=== PATIENT | female | born 1980 | race Caucasian/White ===

== ENCOUNTER → 2019-09-28 13:03 | Outpatient (BNVA) | payer OTHER, SELFPAY | PROVIDERS: PCP Nurse Practitioner; Visit Provider Nurse Practitioner Family | DX: R23.2 Flushing (principal); I10 Essential (primary) hypertension; M94.0 Chondrocostal junction syndrome [Tietze]; F41.0 Panic disorder [episodic paroxysmal anxiety]; W57.XXXA Bitten or stung by nonvenomous insect and other nonvenomous arthropods, initial encounter | CPT/HCPCS: 80053; 80061; 82607; 83001; 83735; 84146; 84443; 85025 ==

== ENCOUNTER → 2020-04-17 10:58 | Outpatient (BNVA) | payer SELFPAY | PROVIDERS: PCP Nurse Practitioner; Visit Provider Nurse Practitioner Family | DX: R07.81 Pleurodynia (principal) | CPT/HCPCS: 71046 ==

== ENCOUNTER → 2020-04-23 08:49 | Outpatient (BNVA) | payer SELFPAY | PROVIDERS: PCP Nurse Practitioner; Visit Provider Nurse Practitioner | DX: I10 Essential (primary) hypertension (principal) | CPT/HCPCS: 80053; 80061; 84443 ==

== ENCOUNTER → 2020-04-26 08:07 | Outpatient (BNVA) | payer SELFPAY | PROVIDERS: PCP Nurse Practitioner; Visit Provider Nurse Practitioner | DX: R73.9 Hyperglycemia, unspecified (principal); I10 Essential (primary) hypertension | CPT/HCPCS: 83036 ==

== ENCOUNTER → 2020-05-03 10:46 | Outpatient (BNVA) | payer SELFPAY | PROVIDERS: PCP Nurse Practitioner; Visit Provider Nurse Practitioner Family | DX: Z20.828 Contact with and (suspected) exposure to other viral communicable diseases (principal); J06.9 Acute upper respiratory infection, unspecified | CPT/HCPCS: 87635 ==

== ENCOUNTER → 2020-06-19 08:54 | Outpatient (BNVA) | payer SELFPAY | PROVIDERS: PCP Nurse Practitioner; Visit Provider Nurse Practitioner Family | DX: M54.9 Dorsalgia, unspecified (principal); R10.9 Unspecified abdominal pain; R10.30 Lower abdominal pain, unspecified; K58.1 Irritable bowel syndrome with constipation | CPT/HCPCS: 80053; 81000; 85025 ==

== ENCOUNTER → 2021-04-23 14:06 | Outpatient (BNVA) | payer BC, SELFPAY | PROVIDERS: PCP Nurse Practitioner; Visit Provider Nurse Practitioner | DX: R39.9 Unspecified symptoms and signs involving the genitourinary system (principal); K58.1 Irritable bowel syndrome with constipation | CPT/HCPCS: 81000 ==

== ENCOUNTER 2021-04-24 10:10 | Emergency (ER) | payer BC, MEDICAID, SELFPAY ==
[2021-04-24 10:46] VITALS: BP 157/97; PULSE 85; RESP 18; TEMP 36.9; O2SAT 99; BMI 40.6
[2021-04-24 12:36] LABS: Add Urine Microscopic? NO; Charge for UA Resulting for Rev
[2021-04-24 12:38] LABS: Bilirubin Urine Neg (Negative); Blood Urine Neg (Negative); Glucose Urine UA Norm (Normal); HCG Qualitative Urine. Negative (Negative); Ketones Urine Negative (Negative); Leukocyte Esterase Urine Negative (Negative); Nitrate Urine Negative (Negative); Protein Urine Neg (Negative); Urine Appearance Clear (CLEAR); Urine Color Straw (Yellow); Urobilinogen Urine Norm (Negative); pH Urine 7 (5-7)
[2021-04-24 12:57] VITALS: BP 147/96; PULSE 83; RESP 18; O2SAT 100
--- NOTE | 2021-04-24 13:09 | ED_ITS ---
HPI - Female Genitourinary General: Chief complaint: Urogenital-Female Stated complaint: right abd pain lower back pain Time Seen by Provider: 04/24/21 13:06 History of Present Illness: Associated symptoms: Reports abdominal pain Review of Systems General: Reports: 10 or more systems reviewed and unremarkable except in HPI and below GI: Reports: abdominal pain [facility] ED PFSH: Medical History Hyperlipidemia Hypertension Irritable bowel syndrome with constipation Nicotine dependence, cigarettes, uncomplicated as of 11/29/20, has not smoked in five weeks. Panic disorder without agoraphobia Surgical History History of delivery Family History Mother Diabetes Father CAD (coronary artery disease) Social History Second hand smoke exposure: No Alcohol intake: never Lives independently: Yes Household members: spouse and children Housing: House Marital status: Current gender identity: Female Physical Exam Const: COMMON NORMALS: no acute distress, patient oriented x3, no limitations and alert GENERAL APPEARANCE: cooperative and comfortable ORIENTATION/CONSCIOUSNESS: Yes awake, Yes oriented to person, Yes oriented to place and Yes oriented to time HENMT: COMMON NORMALS: normocephalic, atraumatic, external ears normal, EAC's normal, TM's normal bilaterally and Normal external nose present HEAD & SCALP: normal to inspection, normocephalic and atraumatic FACE & SINUS: normal facial exam, sinuses nontender and face symmetric NOSE: Normal external nose present, Normal nares present and No nasal discharge present EXTERNAL EAR: Yes external ears normal EXTERNAL AUDITORY CANAL: EAC's normal TYMPANIC MEMBRANE: TM's normal bilaterally MOUTH: Normal oral and palatal mucosa present, lip normal and tongue normal THROAT: posterior oropharynx normal, tonsils normal and uvula midline Eye: COMMON NORMALS: Equal, round and reactive pupils present, EOMs intact bilaterally and conjunctivae normal GENERAL EYE: appearance normal, both eyes and all related structures and normal light reflex EYELID: eyelids normal CONJUNCTIVA: Yes conjunctivae normal PUPIL: Yes Equal, round and reactive pupils present EOM: Yes EOM abnormal DIRECT OPHTHALMOSCOPY: Yes normal light reflex Neck/C-Spine: COMMON NORMALS: full ROM, no lymphadenopathy, supple, no meningeal signs, no JVD and Thyroid normal GENERAL: Yes normal visual inspection THYROID: Thyroid normal CERVICAL SPINE: Yes cervical ROM normal and Yes normal cervical lordosis Lymph: LYMPHATIC: no lymphadenopathy noted Chest: COMMONS NORMALS: normal inspection of the chest and normal palpation of entire chest wall Resp: COMMON NORMALS: normal respiratory effort, No retractions and clear to auscultation bilaterally AUSCULTATION: clear to auscultation bilaterally Cardio: COMMON NORMALS: no JVD, regular rate, regular rhythm, S1 normal heart sound present, S2 normal heart sound present, No gallops present (Cardio), No clicks present (Cardio), No murmurs present (Cardio), No rub (Cardio) and Peripheral pulses 2+ throughout RATE: regular rate RHYTHM: regular rhythm HEART SOUNDS: S1 normal heart sound present and S2 normal heart sound present PERIPHERAL PULSES: Peripheral pulses 2+ throughout GI: COMMON NORMALS: Normal to inspection, nondistended, normoactive bowel sounds present, Soft to palpation and no masses PALPATION: Yes Soft to palpation and Yes Tenderness to palpation present (GI) Details: RLQ : COMMON NORMALS: Yes no CVA tenderness and Yes normal external appearance BLADDER/KIDNEY EXAM: Yes no CVA tenderness Back/Pelvis: COMMON NORMALS: no CVA tenderness, thoracic and lumbar spine normal to inspection, no thoracic nor lumbar tenderness and thoraco-lumbar ROM normal Extremity: COMMON NORMALS: normal to inspection, full ROM, capillary refill normal, no joint enlargement, no clubbing, cyanosis or edema, no calf tenderness and no pedal edema GENERAL: Yes normal exam except as noted Neuro: COMMON NORMALS: patient oriented x3, moves all extremities, no focal motor deficits, no sensory deficits noted and gait normal SENSORIUM/ORIENTATION: Yes alert, Yes oriented to person, Yes oriented to place and Yes oriented to time MENINGEAL SIGNS: Yes no meningeal signs Psych: COMMON NORMALS: mental status grossly normal, Normal thought process present, cooperative, normal affect, speech normal and activity/motor behavior normal SPEECH: Yes normal speech THOUGHT PROCESS: Normal thought process present Skin: COMMON NORMALS: no rashes or lesions noted, no wounds and turgor normal GENERAL SKIN EXAM: no rashes or lesions noted and turgor normal Course ED course: Pt presents with complaints of RLQ pain for several weeks. She had taken antibx for COVID recently and feels it was worse after that. Notes some urinary changes and fearful that her appendix may be an issue. Pt cannot tolerate IV contrast. Labs ordered. Reevaluation(s): Reevaluation #1: Pt labs do not reflect any acute infection- we discussed possibility of celiac's disease and need for further work up as well as possible need for colonoscopy and EGD. IBS symptoms increasing so small intestinal bacterial overgrowth after antibx is another consideration. Good probiotics, no gluten or dairy, cut out refined sugars, and consider fasting to help with dysbiosis. Will DC. Time: 15:26 Vital Signs: Vital signs: Vital Signs Temperature 98.4 F 04/24/21 10:46 Pulse Rate 83 04/24/21 12:57 Respiratory Rate 18 04/24/21 12:57 Blood Pressure 147/96 04/24/21 12:57 Pulse Oximetry 100 04/24/21 12:57 MDM - Female Lab Data: Labs: Lab Results 04/24/21 04/24/21 04/24/21 12:14 12:14 14:34 WBC 8.4 10^3/uL 10^3/ uL (4.0-10.0) RBC 5.40 10^6/uL H 10 ^6/uL (4.1-5.3) Hgb 14.3 g/dL g/dL (11.5-15.3) Hct 44.8 % % (37.0-47.0) MCV 83.0 fl fl (81-99) MCH 26.5 pg L pg (28.0-34.0) MCHC 31.9 g/dL g/dL (30.0-36.0) RDW 14.0 % % (12.1-15.1) Plt Count 357 10^3/cmm 10^3 /cmm (130-400) MPV 10.5 fL H fL (7.4-10.4) Neut % (Auto) 66.1 % % Lymph % (Auto) 23.4 % % [place] % (Auto) 8.4 % % Eos % (Auto) 1.0 % % Baso % (Auto) 0.7 % % Neut # (Auto) 5.54 10^3/uL 10^3 /uL (1.8-7.7) Lymph # (Auto) 2.0 10^3/uL 10^3/ uL (0.8-4.8) [place] # (Auto) 0.7 10^3/uL 10^3/ uL (0.2-0.9) Eos # (Auto) 0.1 10^3/uL 10^3/ uL (0.0-0.8) Baso # (Auto) 0.1 10^3/uL 10^3/ uL (0.0-0.1) Nucleated RBC % (a uto) 0 % % Nucleated RBCs # 0.0 /100WBC /100W BC Sodium Potassium Chloride Carbon Dioxide Anion Gap BUN Creatinine GFR Calculation Glucose Calculated Osmolal ity Calcium Total Bilirubin AST ALT Alkaline Phosphata se Total Protein Albumin Globulin Amylase Lipase 25-OH Vitamin D To chirag HCG, Qual Negative (Negative) Urine Color Straw (Yellow) Urine Appearance Clear (CLEAR) Urine pH 7 (5-7) Ur Specific Gravit y 1.010 (1.005-1.030) Urine Protein Neg (Negative) Urine Glucose (UA) Norm (Normal) Urine Ketones Negative (Negative) Urine Blood Neg (Negative) Urine Nitrate Negative (Negative) Urine Bilirubin Neg (Negative) Urine Urobilinogen Norm mg/dL mg/dL (Negative) Ur Leukocyte Adriana ase Negative (Negative) 04/24/21 14:34 WBC RBC Hgb Hct MCV MCH MCHC RDW Plt Count MPV Neut % (Auto) Lymph % (Auto) [place] % (Auto) Eos % (Auto) Baso % (Auto) Neut # (Auto) Lymph # (Auto) [place] # (Auto) Eos # (Auto) Baso # (Auto) Nucleated RBC % (a uto) Nucleated RBCs # Sodium 137 mmol/L mmol/L (136-145) Potassium 3.8 mmol/L mmol/L (3.5-5.1) Chloride 103 mmol/L mmol/L (98-107) Carbon Dioxide 27 mmol/L mmol/L (22-29) Anion Gap 10.8 (5-19) BUN 5 mg/dL L mg/dL (6-20) Creatinine 0.6 mg/dL mg/dL (0.5-0.9) GFR Calculation 110.2 mL/min mL/m in (90-130) Glucose 105 mg/dL mg/dL (65-115) Calculated Osmolal ity 282 mOsm/kg L mOs m/kg (285-295) Calcium 8.6 mg/dL mg/dL (8.5-10.5) Total Bilirubin 0.4 mg/dL mg/dL (0.15-1.2) AST 13 U/L U/L (0-32) ALT 13 U/L U/L (0-33) Alkaline Phosphata se 119 IU/L H IU/L (35-105) Total Protein 7.1 g/dL g/dL (6.6-8.7) Albumin 3.6 g/dL g/dL (3.5-5.2) Globulin 3.5 g/dL g/dL (1.3-4.6) Amylase 34 U/L U/L (28-100) Lipase 19 U/L U/L (13-60) 25-OH Vitamin D To chirag 52 ng/mL ng/mL (30-100) HCG, Qual Urine Color Urine Appearance Urine pH Ur Specific Gravit y Urine Protein Urine Glucose (UA) Urine Ketones Urine Blood Urine Nitrate Urine Bilirubin Urine Urobilinogen Ur Leukocyte Adriana ase Discharge Plan Discharge Condition: Stable Prescriptions: No Action escitalopram oxalate [Lexapro] 20 mg tablet 20 mg PO QAM Qty: 30 RF: 6 levothyroxine 50 mcg tablet 50 mcg PO DAILY Qty: 90 RF: 1 dicyclomine 20 mg tablet 20 mg PO BID PRN (Reason: ibs symptoms) Qty: 14 RF: 0 ibuprofen 200 mg capsule 200 mg PO Q6H PRN (Reason: pain) 14 Days Qty: 56 RF: 0 silver sulfadiazine [Silvadene] 1 % cream 1 applic topical BID Qty: 50 RF: 0 alprazolam 0.5 mg tablet 0.5 mg PO TID Qty: 120 RF: 3 metoprolol succinate 100 mg tablet extended release 24 hr 100 mg PO DAILY Qty: 30 RF: 0 Discharge Orders: Discharge ED (Routine); Ordered 04/24/21 Ordered By: Kaity Ureña Referrals: Krys Jaimes, [employer] POWERPLANT TECHNICIAN-C [Primary Care Provider] - Discharge Diet: As Directed Discharge Activity: Increase activity as tolerated Activity Restrictions/Additional Instructions: PROBIOTICS MAGNESIUM VIT D B COMPLEX NO GLUTEN NO DAIRY Coding Level of Care Code ED Cleaner Greaser for Chg Fwdamon
[2021-04-24 14:42] LABS: Basophils # 0.1 10^3/uL (0.0-0.1); Basophils % 0.7 %; Eosinophils # 0.1 10^3/uL (0.0-0.8); Hematocrit 44.8 % (37.0-47.0); Hemoglobin 14.3 g/dL (11.5-15.3); Lymphocytes % 23.4 %; Mean Corpuscular HGB Conc 31.9 g/dL (30.0-36.0); Mean Corpuscular Hemoglobin 26.5 pg (28.0-34.0); Mean Platelet Volume 10.5 fL (7.4-10.4); Monocytes # 0.7 10^3/uL (0.2-0.9); Monocytes % 8.4 %; Neutrophils # 5.54 10^3/uL (1.8-7.7); Neutrophils % 66.1 %; Nucleated Red Blood Cells % 0 %; Platelet Count 357 10^3/cmm (130-400); White Blood Count 8.4 10^3/uL (4.0-10.0)
[2021-04-24 15:01] LABS: Alanine Aminotransferase 13 U/L (0-33); Albumin Level 3.6 g/dL (3.5-5.2); Alkaline Phosphatase 119 IU/L (35-105); Amylase 34 U/L (28-100); Anion Gap 10.8 (5-19); Aspartate Amino Transferase 13 U/L (0-32); Blood Urea Nitrogen 5 mg/dL (6-20); Calcium 8.6 mg/dL (8.5-10.5); Carbon Dioxide 27 mmol/L (22-29); Chloride 103 mmol/L (98-107); Globulin 3.5 g/dL (1.3-4.6); Glomerular Filtration Rate 110.2 mL/min (90-130); Glucose 105 mg/dL (65-115); Lipase 19 U/L (13-60); Osmolality Calculated 282 mOsm/kg (285-295); Potassium 3.8 mmol/L (3.5-5.1); Sodium 137 mmol/L (136-145); Total Bilirubin 0.4 mg/dL (0.15-1.2); Total Protein 7.1 g/dL (6.6-8.7)
[2021-04-24 15:17] LABS: 25 Hydroxy Vitamin D 52 ng/mL (30-100)
== END 2021-04-24 15:48 ==
PROVIDERS: Emergency Medicine; Emergency Provider Nurse Practitioner Family; PCP Nurse Practitioner
DX: R10.9 Unspecified abdominal pain (principal); M54.50 Low back pain, unspecified; E78.5 Hyperlipidemia, unspecified; I10 Essential (primary) hypertension
CPT/HCPCS: 36415; 80053; 81003; 81025; 82150; 82306; 83690; 85025; 99282

== ENCOUNTER → 2021-05-21 18:27 | Outpatient (BNVA) | payer BC, SELFPAY | PROVIDERS: PCP Nurse Practitioner; Visit Provider Nurse Practitioner | DX: S92.911A Unspecified fracture of right toe(s), initial encounter for closed fracture (principal); X58.XXXA Exposure to other specified factors, initial encounter | CPT/HCPCS: 73630 ==

== ENCOUNTER → 2022-01-01 09:05 | Outpatient (BNVA) | payer BC, SELFPAY | PROVIDERS: PCP Nurse Practitioner; Visit Provider Nurse Practitioner Family | DX: Z11.59 Encounter for screening for other viral diseases (principal); Z20.2 Contact with and (suspected) exposure to infections with a predominantly sexual mode of transmission | CPT/HCPCS: 86695; 86696; 86803; 87340; 87491; 87591; 87661; 87806 ==

== ENCOUNTER 2022-02-19 09:05 | Outpatient (CLI) | payer BC, MEDICAID, SELFPAY ==
[2022-02-19 10:23] LABS: Thyroid Stimulating Hormone 2.46 uIU/mL (0.27-4.20)
== END 2022-02-19 09:06 | disposition home or self-care (01) ==
LOC: LAB 09:13
PROVIDERS: PCP Nurse Practitioner; Visit Provider Nurse Practitioner
DX: I10 Essential (primary) hypertension (principal)
CPT/HCPCS: 36415; 84443

== ENCOUNTER → 2022-03-09 13:04 | Outpatient (BNVA) | payer BC, MEDICAID, SELFPAY | PROVIDERS: PCP Nurse Practitioner; Visit Provider Nurse Practitioner | DX: I10 Essential (primary) hypertension (principal) | CPT/HCPCS: 80053; 80061 ==

== ENCOUNTER 2022-04-08 11:20 | Outpatient (CLI) | payer BC, MEDICAID, SELFPAY ==
[2022-04-08 12:26] LABS: Alanine Aminotransferase 14 U/L (0-33); Albumin Level 3.8 g/dL (3.5-5.2); Alkaline Phosphatase 121 U/L (35-105); Anion Gap 14.1 (5-19); Aspartate Amino Transferase 15 U/L (0-32); Blood Urea Nitrogen 6 mg/dL (6-20); Calcium 9.1 mg/dL (8.5-10.5); Carbon Dioxide 24 mmol/L (22-29); Chloride 102 mmol/L (98-107); Chol HDL Ratio 5.57 mg/dL (0.0-4.40); Cholesterol 156 mg/dL (0-200); Globulin 3.3 g/dL (1.3-4.6); Glomerular Filtration Rate 91.8 mL/min (90-130); Glucose 102 mg/dL (65-115); HDL Cholesterol 28 mg/dL (60-100); LDL Cholesterol Calculated 99 mg/dL (50-129); Osmolality Calculated 280 mOsm/kg (285-295); Potassium 4.1 mmol/L (3.5-5.1); Sodium 136 mmol/L (136-145); Thyroid Stimulating Hormone 2.42 uIU/mL (0.27-4.20); Total Bilirubin 0.3 mg/dL (0.15-1.2); Total Protein 7.1 g/dL (6.6-8.7); Triglycerides 144 mg/dL (0-150); VLDL Cholestrol Calculation 29 mg/dL (0-30)
== END 2022-04-08 11:21 | disposition home or self-care (01) ==
PROVIDERS: PCP Nurse Practitioner; Visit Provider Nurse Practitioner
DX: E78.5 Hyperlipidemia, unspecified (principal); E03.8 Other specified hypothyroidism
CPT/HCPCS: 80053; 80061; 84443

== ENCOUNTER → 2022-10-15 09:09 | Outpatient (BNVA) | payer BC, MEDICAID, SELFPAY | PROVIDERS: PCP Nurse Practitioner; Visit Provider Nurse Practitioner | DX: E78.5 Hyperlipidemia, unspecified (principal); E03.8 Other specified hypothyroidism; I10 Essential (primary) hypertension | CPT/HCPCS: 80053; 80061; 84443 ==

== ENCOUNTER → 2023-01-11 12:28 | Outpatient (BNVA) | payer BC, MEDICAID, SELFPAY | PROVIDERS: PCP Nurse Practitioner; Visit Provider Nurse Practitioner | DX: R39.9 Unspecified symptoms and signs involving the genitourinary system (principal); K58.1 Irritable bowel syndrome with constipation | CPT/HCPCS: 81000; 87086 ==

== ENCOUNTER 2023-03-09 17:47 | Emergency (ER) | payer BC, MEDICAID, SELFPAY ==
[2023-03-09 18:11] VITALS: BP 173/98; PULSE 82; RESP 16; TEMP 37.3; O2SAT 99; BMI 43.2
--- NOTE | 2023-03-09 18:17 | W.ED.ABDPA2 ---
HPI - Abdominal Pain General: Chief Complaint: Abdominal Pain Stated Complaint: rib pain Time Seen by Provider: 03/09/23 18:01 History of Present Illness: 42-year-old female comes in today with right upper quadrant abdominal discomfort for 1 week. Patient reports the pain is pressure. Patient appears nontoxic. Patient appears in mild to no pain. Patient has a history of chronic back pain, IBS, obesity, panic disorder, hypertension. Review of Systems General: Reports: 10 or more systems reviewed and unremarkable except in HPI and below GI: Reports: abdominal pain (ruq) PFSH ED PFSH: Medical History External hemorrhoid Hyperlipidemia Hypertension Irritable bowel syndrome with constipation Panic disorder without agoraphobia Surgical History History of delivery Family History Mother Diabetes Father CAD (coronary artery disease) Social History Second hand smoke exposure: No Alcohol intake: unknown Substance/Drug Use: unknown Adopted: No Caregiver/support person: No Lives independently: Yes Household members: children Housing: House Marital status: Single Number of children: 3 service: No Current occupational status: employed Do you think of yourself as: Straight/Heterosexual Current gender identity: Female Physical Exam Const: COMMON NORMALS: alert HENMT: COMMON NORMALS: normocephalic and Normal external nose present HEAD & SCALP: normocephalic NOSE: Normal external nose present Neck/C-Spine: COMMON NORMALS: full ROM Resp: COMMON NORMALS: normal respiratory effort and clear to auscultation bilaterally AUSCULTATION: clear to auscultation bilaterally Cardio: COMMON NORMALS: regular rate and regular rhythm RATE: regular rate RHYTHM: regular rhythm GI: COMMON NORMALS: Soft to palpation AUSCULTATION: Yes Hyperactive bowel sounds present PALPATION: Yes Soft to palpation and Yes Tenderness to palpation present (GI) Details: RUQ : COMMON NORMALS: Yes no CVA tenderness BLADDER/KIDNEY EXAM: Yes no CVA tenderness Back/Pelvis: COMMON NORMALS: no CVA tenderness and thoracic and lumbar spine normal to inspection Extremity: COMMON NORMALS: normal to inspection Neuro: SENSORIUM/ORIENTATION: Yes alert Skin: COMMON NORMALS: turgor normal GENERAL SKIN EXAM: turgor normal Course Vital Signs: Vital signs: Vital Signs Temperature 99.1 F 03/09/23 18:11 Pulse Rate 82 03/09/23 18:11 Respiratory Rate 16 03/09/23 18:11 Blood Pressure 173/98 03/09/23 18:11 Pulse Oximetry 99 03/09/23 18:11 Oxygen Delivery Me thod Room Air 03/09/23 18:11 MDM - Abdominal Pain Medical Decision Making 42-year-old female comes in today with complaints of right upper quadrant abdominal pressure and tenderness. Patient appears nontoxic. Patient appears in mild pain. Vital signs are normal. On exam abdomen soft with some hyperactive bowel sounds. Patient did endorse that she had taken some lactulose prior to coming to the ER believing she was constipated. Tenderness was noted in the right upper quadrant of the abdomen. No CVA tenderness. No pain along the spinal column. Differential diagnosis includes but not limited to constipation, gallbladder disease, pancreatitis, gastroenteritis, bowel obstruction. CBC showed a white blood cell count 12,000, CMP was unremarkable. Exam noted some right upper quadrant tenderness with deep palpation. Ultrasound was performed and noted gallstones without definitive sign of infection or obstruction. Reviewed exam with patient recommended treatment follow-up with surgeon for gallbladder removal. Patient was stable and in no severe pain, and discharged to home. Lab Data 03/09/23 18:57 03/09/23 18:57 Labs/Radiology: Radiology Impressions KUB X-Ray 03/09/23 18:25 IMPRESSION: No acute findings. Gallbladder Ultrasound 03/09/23 19:33 IMPRESSION: 1. Fatty liver 2. Cholelithiasis with thickening of the gallbladder wall. Cholecystitis not excluded. 3. Right kidney cyst Laboratory Results WBC 12.31 10^3/uL (3.29-11.43) H 03/09/23 18:57 RBC 5.70 10^6/uL (3.85-5.65) H 03/09/23 18:57 Hgb 15.20 g/dL (11.27-16.99) 03/09/23 18:57 Hct 46.9 % (36-47) 03/09/23 18:57 MCV 82.3 fl (85-98) L 03/09/23 18:57 MCH 26.7 pg (27-33) L 03/09/23 18:57 MCHC 32.4 g/dL (30-55) 03/09/23 18:57 RDW 14.5 % (12.1-15.1) 03/09/23 18:57 Plt Count 433 10^3/cmm (157-399) H 03/09/23 18:57 MPV 10.1 fL (7.4-10.4) 03/09/23 18:57 Neut % (Auto) 68.7 % 03/09/23 18:57 Lymph % (Auto) 23.8 % 03/09/23 18:57 [place] % (Auto) 5.8 % 03/09/23 18:57 Eos % (Auto) 0.9 % 03/09/23 18:57 Baso % (Auto) 0.5 % 03/09/23 18:57 Neut # (Auto) 8.46 10^3/uL (1.8-7.7) H 03/09/23 18:57 Lymph # (Auto) 2.9 10^3/uL (0.8-4.8) 03/09/23 18:57 [place] # (Auto) 0.7 10^3/uL (0.2-0.9) 03/09/23 18:57 Eos # (Auto) 0.1 10^3/uL (0.0-0.8) 03/09/23 18:57 Baso # (Auto) 0.1 10^3/uL (0.0-0.1) 03/09/23 18:57 Nucleated RBC % (auto) 0 % 03/09/23 18:57 Nucleated RBCs # 0.0 /100WBC 03/09/23 18:57 Sodium 137 mmol/L (136-145) 03/09/23 18:57 Potassium 3.7 mmol/L (3.5-5.1) 03/09/23 18:57 Chloride 101 mmol/L (98-107) 03/09/23 18:57 Carbon Dioxide 26 mmol/L (22-29) 03/09/23 18:57 Anion Gap 13.7 (5-19) 03/09/23 18:57 BUN 5 mg/dL (6-20) L 03/09/23 18:57 Creatinine 0.7 mg/dL (0.5-0.9) 03/09/23 18:57 GFR Calculation 91.3 mL/min (90-130) 03/09/23 18:57 Glucose 98 mg/dL (65-115) 03/09/23 18:57 Calculated Osmolality 281 mOsm/kg (285-295) L 03/09/23 18:57 Calcium 9.8 mg/dL (8.5-10.5) 03/09/23 18:57 Total Bilirubin 0.4 mg/dL (0.15-1.2) 03/09/23 18:57 AST 12 U/L (0-32) 03/09/23 18:57 ALT 13 U/L (0-33) 03/09/23 18:57 Alkaline Phosphatase 131 U/L (35-105) H 03/09/23 18:57 Total Protein 7.9 g/dL (6.6-8.7) 03/09/23 18:57 Albumin 4.1 g/dL (3.5-5.2) 03/09/23 18:57 Globulin 3.8 g/dL (1.3-4.6) 03/09/23 18:57 Lipase 25 U/L (13-60) 03/09/23 18:57 HCG, Qual Negative (Negative) 03/09/23 19:25 Urine Color Yellow (Yellow) 03/09/23 19:25 Urine Appearance Clear (CLEAR) 03/09/23 19:25 Urine pH 7 (5-7) 03/09/23 19:25 Ur Specific [place] 1.010 (1.005-1.030) 03/09/23 19:25 Urine Protein Neg (Negative) 03/09/23 19:25 Urine Glucose (UA) Norm (Normal) 03/09/23 19:25 Urine Ketones Negative (Negative) 03/09/23 19:25 Urine Blood Neg (Negative) 03/09/23 19:25 Urine Nitrate Negative (Negative) 03/09/23 19:25 Urine Bilirubin Neg (Negative) 03/09/23 19:25 Urine Urobilinogen Norm mg/dL (Negative) 03/09/23 19:25 Ur Leukocyte Esterase Negative (Negative) 03/09/23 19:25 All radiology interpretation(s) finalized by discharge Discharge Plan Discharge Patient Disposition: Home Clinical Impression: Cholelithiasis Qualifiers: Cholelithiasis location: gallbladder Cholecystitis presence: without cholecystitis Biliary obstruction: without biliary obstruction Qualified Code(s): K80.20 - Calculus of gallbladder without cholecystitis without obstruction Condition: Stable Prescriptions: No Action fenofibrate nanocrystallized [Tricor] 145 mg tablet 145 mg PO DAILY Qty: 30 5RF lactulose 10 gram/15 mL solution 20 g PO BID PRN (Reason: constipation) Qty: 500 5RF hydrocortisone [Anusol-HC] 2.5 % cream with perineal applicator 1 applic [place] TID PRN (Reason: hemorrhoids) Qty: 30 1RF triamcinolone acetonide 0.1 % ointment 1 applic topical BID Qty: 15 0RF escitalopram oxalate [Lexapro] 20 mg tablet 20 mg PO .morning Qty: 90 2RF Rx Instructions: Take one tablet every morning bupropion HCl [Wellbutrin SR] 150 mg tablet sustained-release 12 hr 150 mg PO QAM Qty: 30 4RF metoprolol succinate 100 mg tablet extended release 24 hr 100 mg PO .with dinner Qty: 30 5RF Rx Instructions: no meds sent has at home alprazolam 0.5 mg tablet 0.5 mg PO TID PRN (Reason: anxiety) Qty: 90 4RF Rx Instructions: May take one tablet three times per day as needed for anxiety Discharge Orders: Discharge ED (Routine); Ordered 03/09/23 Ordered By: Gregory White Referrals: Krys Jaimes, [employer]UKE[employer] ROUTEMAN-C [Primary Care Provider] - Discharge Diet: Advance as tolerated Patient Instructions: Gallstones (ED) Activity Restrictions/Additional Instructions: Home and rest. Avoid high-fat meals. Drink plenty of water and fluids. Follow-up with primary care as needed. Case management will contact you regarding follow-up appointment with surgeon. Return to ER for worsening symptoms such as inability to hold fluids down, high fever greater than 100.4, worsening pain and discomfort. Coding Level of Care Code ED Field Crop Technical Officer for Sarai Sage
--- NOTE | 2023-03-09 18:25 | XRR_ITS ---
PROCEDURE INFORMATION: Exam: XR Abdomen Exam date and time: 03/09/2023 6:31 PM Age: 42 years old Clinical indication: Abdominal pain; Acute; Prior surgery; Surgery date: 6+ months; Surgery type: Tubal ; Additional info: Constipation TECHNIQUE: Imaging protocol: Radiologic exam of the abdomen. Views: Frontal supine view of the abdomen. 1 View. COMPARISON: CR XR chest 2V* [id number] 04/17/2020 10:58 AM FINDINGS: Gastrointestinal tract: Normal. No bowel dilation. Bones/joints: Unremarkable. XR/XR KUB [id number] IMPRESSION: No acute findings.
[2023-03-09 19:19] LABS: Alanine Aminotransferase 13 U/L (0-33); Albumin Level 4.1 g/dL (3.5-5.2); Alkaline Phosphatase 131 U/L (35-105); Anion Gap 13.7 (5-19); Aspartate Amino Transferase 12 U/L (0-32); Blood Urea Nitrogen 5 mg/dL (6-20); Calcium 9.8 mg/dL (8.5-10.5); Carbon Dioxide 26 mmol/L (22-29); Chloride 101 mmol/L (98-107); Globulin 3.8 g/dL (1.3-4.6); Glomerular Filtration Rate 91.3 mL/min (90-130); Glucose 98 mg/dL (65-115); Lipase 25 U/L (13-60); Osmolality Calculated 281 mOsm/kg (285-295); Potassium 3.7 mmol/L (3.5-5.1); Sodium 137 mmol/L (136-145); Total Bilirubin 0.4 mg/dL (0.15-1.2); Total Protein 7.9 g/dL (6.6-8.7)
[2023-03-09 19:24] LABS: Basophils # 0.1 10^3/uL (0.0-0.1); Basophils % 0.5 %; Eosinophils # 0.1 10^3/uL (0.0-0.8); Eosinophils % 0.9 %; Hematocrit 46.9 % (36-47); Lymphocytes # 2.9 10^3/uL (0.8-4.8); Lymphocytes % 23.8 %; Mean Corpuscular HGB Conc 32.4 g/dL (30-55); Mean Corpuscular Hemoglobin 26.7 pg (27-33); Mean Corpuscular Volume 82.3 fl (85-98); Mean Platelet Volume 10.1 fL (7.4-10.4); Monocytes # 0.7 10^3/uL (0.2-0.9); Monocytes % 5.8 %; Neutrophils # 8.46 10^3/uL (1.8-7.7); Neutrophils % 68.7 %; Nucleated Red Blood Cells % 0 %; Platelet Count 433 10^3/cmm (157-399); Red Cell Distribution Width 14.5 % (12.1-15.1); White Blood Count 12.31 10^3/uL (3.29-11.43)
[2023-03-09 19:30] LABS: Add Urine Microscopic? NO; Charge for UA Resulting for Rev
--- NOTE | 2023-03-09 19:33 | USR_ITS ---
PROCEDURE INFORMATION: Exam: US Abdomen, Limited; Right Upper Quadrant Exam date and time: 03/09/2023 7:51 PM Age: 42 years old Clinical indication: Abdominal pain; Other: Ruq pressure x 1 week; Additional info: Abd pain, TECHNIQUE: Imaging protocol: Real time ultrasound of the abdomen with image documentation. Limited exam focused on the right upper quadrant. COMPARISON: No relevant prior studies available. FINDINGS: Liver: There is diffusely increased echogenicity in the liver consistent with fatty change. No focal abnormality is seen within the liver. Liver is 18.7 cm in length. Gallbladder: There are multiple gallstones within the gallbladder. There is mild gallbladder wall thickening which measures 4.4 mm. Largest gallstone measures 2.7 x 2.4 cm. There is no pericholecystic fluid. Biliary ducts: Common bile duct measures 7 mm which is upper limits of the normal range. Pancreas: Pancreas is unremarkable. Right kidney: Right kidney measures 14.0 x 5.1 x 5.3 cm with normal cortical thickness and echogenicity. There is a 2.8 cm sized benign-appearing simple cyst lower pole of the right kidney. There is no right hydronephrosis. Aorta: Aorta is normal in diameter without evidence of aneurysm. Inferior vena cava: IVC is patent. Portal venous: Flow in the main portal vein is in the normal direction. US/US gall bladder [id number] IMPRESSION: 1. Fatty liver 2. Cholelithiasis with thickening of the gallbladder wall. Cholecystitis not excluded. 3. Right kidney cyst
[2023-03-09 19:34] LABS: Bilirubin Urine Neg (Negative); Blood Urine Neg (Negative); Glucose Urine UA Norm (Normal); Ketones Urine Negative (Negative); Leukocyte Esterase Urine Negative (Negative); Nitrate Urine Negative (Negative); Protein Urine Neg (Negative); Urine Appearance Clear (CLEAR); Urine Color Yellow (Yellow); Urobilinogen Urine Norm (Negative); pH Urine 7 (5-7)
[2023-03-09 20:04] LABS: HCG Qualitative Urine. Negative (Negative)
[2023-03-09 21:03] VITALS: BP 173/98; PULSE 82; RESP 16; TEMP 37.3; O2SAT 99
--- NOTE | 2023-03-10 07:35 | DCPLANNER ---
Sent referral request to Surgery Scheduling for Dr. Méndez. YOSEPH 03/10/23
== END 2023-03-09 21:05 | disposition home or self-care (01) ==
PROVIDERS: Emergency Provider Nurse Practitioner Family; PCP Nurse Practitioner
DX: K80.20 Calculus of gallbladder without cholecystitis without obstruction (principal); K76.0 Fatty (change of) liver, not elsewhere classified; N28.1 Cyst of kidney, acquired; E78.5 Hyperlipidemia, unspecified; I10 Essential (primary) hypertension
CPT/HCPCS: 36415; 74018; 76705; 80053; 81003; 81025; 83690; 85025; 99285

== ENCOUNTER → 2023-04-01 15:48 | Outpatient (BNVA) | payer BC, MEDICAID, SELFPAY | PROVIDERS: PCP Nurse Practitioner; Visit Provider Nurse Practitioner Family | DX: I10 Essential (primary) hypertension (principal) | CPT/HCPCS: 80053; 80061; 84443; 85025 ==

== ENCOUNTER 2023-07-20 10:45 | Emergency (ER) | payer BC, MEDICAID, SELFPAY ==
[2023-07-20 10:57] VITALS: BP 153/102; PULSE 79; RESP 18; TEMP 36.4; O2SAT 98; BMI 41.8
[2023-07-20 12:18] LABS: Basophils # 0.1 10^3/uL (0.0-0.1); Basophils % 0.7 %; Eosinophils # 0.2 10^3/uL (0.0-0.8); Eosinophils % 1.8 %; Lymphocytes # 2.4 10^3/uL (0.8-4.8); Lymphocytes % 28.9 %; Mean Corpuscular HGB Conc 32.3 g/dL (30-55); Mean Corpuscular Hemoglobin 26.9 pg (27-33); Mean Corpuscular Volume 83.3 fl (85-98); Mean Platelet Volume 10.2 fL (7.4-10.4); Monocytes # 0.5 10^3/uL (0.2-0.9); Monocytes % 5.9 %; Neutrophils # 5.17 10^3/uL (1.8-7.7); Neutrophils % 62.3 %; Nucleated Red Blood Cells % 0 %; Platelet Count 372 10^3/cmm (157-399); Red Blood Count 5.28 10^6/uL (3.85-5.65); Red Cell Distribution Width 14.9 % (12.1-15.1)
[2023-07-20 12:34] LABS: Alanine Aminotransferase 14 U/L (0-33); Albumin Level 3.8 g/dL (3.5-5.2); Alkaline Phosphatase 127 U/L (35-105); Anion Gap 14.3 (5-19); Aspartate Amino Transferase 15 U/L (0-32); Blood Urea Nitrogen 7 mg/dL (6-20); Calcium 9.2 mg/dL (8.5-10.5); Carbon Dioxide 26 mmol/L (22-29); Chloride 101 mmol/L (98-107); Creatinine Clr Calc Pharmacy 133.2794; Globulin 3.7 g/dL (1.3-4.6); Glomerular Filtration Rate 77.9 mL/min (90-130); Glucose 98 mg/dL (65-115); Osmolality Calculated 282 mOsm/kg (285-295); Potassium 4.3 mmol/L (3.5-5.1); Sodium 137 mmol/L (136-145); Total Bilirubin 0.3 mg/dL (0.15-1.2); Total Protein 7.5 g/dL (6.6-8.7)
[2023-07-20 12:39] LABS: HCG, Serum Qual Negative (Negative)
== END 2023-07-20 13:30 | disposition left against medical advice (07) ==
LOC: ER 10:49
PROVIDERS: Emergency Medicine; Emergency Provider Family Medicine; PCP Nurse Practitioner
DX: Z53.21 Procedure and treatment not carried out due to patient leaving prior to being seen by health care provider (principal)
CPT/HCPCS: 36415; 80053; 84703; 85025

== ENCOUNTER 2023-09-21 08:25 | Emergency (ER) | payer BC, MEDICAID, SELFPAY ==
[2023-09-21 08:54] VITALS: BP 167/102; PULSE 73; RESP 15; TEMP 37.1; O2SAT 97; BMI 44.4
--- NOTE | 2023-09-21 09:00 | ED_ITS ---
HPI - Abdominal Pain 2 General: Chief Complaint: Abdominal Pain Stated Complaint: sharp abd pain Time Seen by Provider: 09/21/23 08:35 Source: patient Mode of arrival: ambulatory History of Present Illness: 43-year-old female presents emergency ro om with complaint of abdominal pain. She localizes pain to the right upper quadrant she has known gallbladder issues she was scheduled to have her gallbladder out in June of this year had a preop evaluation with anesthesia but then she became ill developed pneumonia in the procedure was put off she is in the process of trying to get rescheduled. She has had intermittent diarrhea which she relates to her IBS. She denies any hematemesis coffee-ground emesis no dysuria urgency or frequency or fever. She does have a chronic cough secondary to her smoking that has not changed recently MD elicited complaint: abdominal pain Associated Symptoms: Denies chills, dysuria and fever(s) Review of Systems 2 Const: Denies: fever(s) or chills Card: Denies: chest pain Resp: Denies: dyspnea GI: Denies: abdominal pain : Denies: dysuria, urinary frequency or urinary urgency Musc: Denies: neck pain or back pain Skin/Breast: Denies: rash PFSH ED 2 PFSH: Medical History Bereavement Loss of on 09/11/22 Major depressive disorder, recurrent episode, moderate with anxious distress External hemorrhoid Irritable bowel syndrome with constipation Hyperlipidemia Hypertension Panic disorder without agoraphobia Surgical History History of delivery Family History Mother Diabetes Father CAD (coronary artery disease) Social History Second hand smoke exposure: No Alcohol intake: unknown Substance/Drug Use: unknown Adopted: No Caregiver/support person: No Lives independently: Yes Household members: children Housing: House Marital status: Single Number of children: 3 service: No Current occupational status: employed Do you think of yourself as: Straight/Heterosexual Current gender identity: Female Physical Exam 2 Const: GENERAL APPEARANCE: cooperative ORIENTATION/CONSCIOUSNESS: Yes awake, Yes oriented to person, Yes oriented to place and Yes oriented to time HENMT: COMMON NORMALS: normocephalic, atraumatic and hearing grossly normal bilaterally HEAD & SCALP: normocephalic and atraumatic Resp: COMMON NORMALS: normal respiratory effort, No retractions, No use of accessory muscles and clear to auscultation bilaterally AUSCULTATION: clear to auscultation bilaterally Cardio: COMMON NORMALS: regular rate, regular rhythm and No murmurs present (Cardio) RATE: regular rate RHYTHM: regular rhythm GI: COMMON NORMALS: No hepatosplenomegaly present AUSCULTATION: Yes normoactive bowel sounds PALPATION: Yes Tenderness to palpation present (GI) Details: RUQ, No Guarding due to palpation present (GI) and Yes No hepatosplenomegaly present Extremity: COMMON NORMALS: normal to inspection, capillary refill normal, no clubbing, cyanosis or edema, no calf tenderness and no pedal edema Neuro: SENSORIUM/ORIENTATION: Yes oriented to person, Yes oriented to place and Yes oriented to time Skin: COMMON NORMALS: no rashes or lesions noted GENERAL SKIN EXAM: no rashes or lesions noted Course 2 Vital Signs: Vital signs: Vital Signs Temperature 98.7 F 09/21/23 11:15 Pulse Rate 72 09/21/23 11:15 Respiratory Rate 16 09/21/23 11:15 Blood Pressure 171/123 09/21/23 11:15 Pulse Oximetry 95 09/21/23 11:15 Oxygen Delivery Me thod Room Air 09/21/23 09:24 MDM - Abdominal Pain Medical Decision Making Suspect patient does indeed have biliary colic no signs of acute cholecystitis at this time reviewed with patient different dietary things she can do to avoid aggravating this recommend she use [id number] omeprazole 20 mg twice a day gave Phenergan and hydrocodone if she has recurrent pain clear liquid diet for next 24 to 48 hours and remain on a simple carbohydrate diet after that. She is going to follow-up with her surgeon next week to try to get the cholecystectomy scheduled. Differential Diagnosis Likely abdominal pain Medical Records I reviewed the patient's medical records. Lab Data I reviewed the patient's lab results. 09/21/23 09:01 09/21/23 09:01 Labs/Radiology: Laboratory Results WBC 9.12 10^3/uL (3.29-11.43) 09/21/23 09:01 RBC 5.48 10^6/uL (3.85-5.65) 09/21/23 09:01 Hgb 14.70 g/dL (11.27-16.99) 09/21/23 09: Hct 45.8 % (36-47) 09/21/23 09: MCV 83.6 fl (85-98) L 09/21/23 09: MCH 26.8 pg (27-33) L 09/21/23 09: MCHC 32.1 g/dL (30-55) 09/21/23 09: RDW 14.7 % (12.1-15.1) 09/21/23 09: Plt Count 328 10^3/cmm (157-399) 09/21/23 09: MPV 10.7 fL (7.4-10.4) H 09/21/23 09: Neut % (Auto) 57.8 % 09/21/23 09: Lymph % (Auto) 32.3 % 09/21/23 09: [place] % (Auto) 8.0 % 09/21/23 09:01 Eos % (Auto) 1.3 % 09/21/23 09:01 Baso % (Auto) 0.5 % 09/21/23 09: Neut # (Auto) 5.26 10^3/uL (1.8-7.7) 09/21/23 09:01 Lymph # (Auto) 3.0 10^3/uL (0.8-4.8) 09/21/23 09:01 [place] # (Auto) 0.7 10^3/uL (0.2-0.9) 09/21/23 09:01 Eos # (Auto) 0.1 10^3/uL (0.0-0.8) 09/21/23 09:01 Baso # (Auto) 0.1 10^3/uL (0.0-0.1) 09/21/23 09:01 Nucleated RBC % (auto) 0 % 09/21/23 09:01 Nucleated RBCs # 0.0 /100WBC 09/21/23 09:01 Sodium 138 mmol/L (136-145) 09/21/23 09: Potassium 4.1 mmol/L (3.5-5.1) 09/21/23 09:01 Chloride 103 mmol/L (98-107) 09/21/23 09:01 Carbon Dioxide 24 mmol/L (22-29) 09/21/23 09: Anion Gap 15.1 (5-19) 09/21/23 09:01 BUN 6 mg/dL (6-20) 09/21/23 09:01 Creatinine 0.7 mg/dL (0.5-0.9) 09/21/23 09: GFR Calculation 90.9 mL/min (90-130) 09/21/23 09: Glucose 116 mg/dL (65-115) H 09/21/23 09: Calculated Osmolality 285 mOsm/kg (285-295) 09/21/23 09: Calcium 9.0 mg/dL (8.5-10.5) 09/21/23 09: Total Bilirubin 0.5 mg/dL (0.15-1.2) 09/21/23 09: AST 17 U/L (0-32) 09/21/23 09: ALT 17 U/L (0-33) 09/21/23 09: Alkaline Phosphatase 100 U/L (35-105) 09/21/23 09:01 Total Protein 7.4 g/dL (6.6-8.7) 09/21/23 09: Albumin 3.8 g/dL (3.5-5.2) 09/21/23 09: Globulin 3.6 g/dL (1.3-4.6) 09/21/23 09: Lipase 21 U/L (13-60) 09/21/23 09: HCG, Qual Negative (Negative) 09/21/23 09: Urine Color Yellow (Yellow) 09/21/23 09: Urine Appearance Cloudy (CLEAR) A 09/21/23 09: Urine pH 8 (5-7) H 09/21/23 09: Ur Specific [place] 1.010 (1.005-1.030) 09/21/23 09:17 Urine Protein Neg (Negative) 09/21/23 09: Urine Glucose (UA) Norm (Normal) 09/21/23 09: Urine Ketones Negative (Negative) 09/21/23 09: Urine Blood Neg (Negative) 09/21/23 09:17 Urine Nitrate Negative (Negative) 09/21/23 09:17 Urine Bilirubin Neg (Negative) 09/21/23 09:17 Urine Urobilinogen Norm mg/dL (Negative) 09/21/23 09:17 Ur Leukocyte Esterase Trace (Negative) H 09/21/23 09:17 Urine RBC None /hpf (0-2) 09/21/23 09:17 Urine WBC 0-4 /hpf (0-5) H 09/21/23 09:17 Ur Squamous Epith Cells 10-15 /hpf (0-5) H 09/21/23 09:17 Amorphous Sediment Not Reportable 09/21/23 09:17 Urine Bacteria None /hpf (NONE) 09/21/23 09:17 Urine Mucus None /hpf 09/21/23 09:17 No radiology studies performed this visit Discharge Plan Discharge Patient Disposition: Home Clinical Impression: Biliary colic Condition: Stable Prescriptions: New hydrocodone-acetaminophen 5-325 mg tablet 1 tab PO Q6H PRN (Reason: pain) Qty: 15 0RF promethazine 25 mg tablet 25 mg PO Q6H PRN (Reason: nausea and vomiting) Qty: 20 0RF No Action alprazolam 0.5 mg tablet 0.5 mg PO TID PRN (Reason: anxiety) Qty: 90 3RF lisinopril 20 mg tablet 20 mg PO DAILY Qty: 30 5RF lactulose 10 gram/15 mL solution 20 g PO BID PRN (Reason: constipation) Qty: 500 5RF Ventolin HFA 90 mcg/actuation HFA aerosol inhaler 2 puff INHALATION QID PRN (Reason: Shortness Of Breath Or Wheezing) metoprolol succinate 100 mg tablet extended release 24 hr 100 mg PO QPM Lexapro 20 mg tablet 20 mg PO QAM ZzzQuil 50 mg/30 mL Liquid 50 mg PO TID PRN (Reason: Sleep) Discharge Orders: Discharge ED (Routine); Ordered 09/21/23 Ordered By: Danial Jimenez Referrals: Krys Jaimes, PEYTONC [Primary Care Provider] - Patient Instructions: Abdominal Pain (ED), Opioid Safety, Pain Management Activity Restrictions/Additional Instructions: Thank you for choosing [facility] for your healthcare needs today. Please realize this is an emergency room and that we are providing you with a medical screening exam and this may not be complete and all inclusive of all the testing and or work up that you may need to determine your ailment or severity of your illness. It is very important that you follow up as instructed or that you return to the Emergency Department should you have concerns or if your condition changes or worsens in any way. You are seen today for right upper quadrant pain. Suspect this is due to your gallbladder. You were given nausea medicines and pain medications to use as needed. Your laboratory test did not show acute cholecystitis requiring emergent surgery at this time. Recommend you follow-up with general surgery to schedule outpatient cholecystectomy. Return if symptoms worsen. Avoid fatty foods fried foods red meats citrus foods and tomato based products as well as alcohol as all of these foods can trigger Coding Level of Care Code ED Mingler Operator for Sarai Sage
[2023-09-21 09:09] LABS: Basophils # 0.1 10^3/uL (0.0-0.1); Basophils % 0.5 %; Eosinophils # 0.1 10^3/uL (0.0-0.8); Eosinophils % 1.3 %; Hematocrit 45.8 % (36-47); Lymphocytes % 32.3 %; Mean Corpuscular HGB Conc 32.1 g/dL (30-55); Mean Corpuscular Hemoglobin 26.8 pg (27-33); Mean Corpuscular Volume 83.6 fl (85-98); Mean Platelet Volume 10.7 fL (7.4-10.4); Monocytes # 0.7 10^3/uL (0.2-0.9); Neutrophils # 5.26 10^3/uL (1.8-7.7); Neutrophils % 57.8 %; Nucleated Red Blood Cells % 0 %; Platelet Count 328 10^3/cmm (157-399); Red Blood Count 5.48 10^6/uL (3.85-5.65); Red Cell Distribution Width 14.7 % (12.1-15.1); White Blood Count 9.12 10^3/uL (3.29-11.43)
--- NOTE | 2023-09-21 09:13 | ECG_ITS ---
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 Measurements Intervals [place] Rate: 69 P: 21 [place]: 192 QRS: -1 QRSD: 98 T: -2 QT: 372 QTc: 401 Interpretive Statements SINUS RHYTHM MINIMAL VOLTAGE CRITERIA FOR LVH, CONSIDER NORMAL VARIANT [MEETS CRITERIA IN ONE OF: R(aVL), S(V1), R(V5), R(V5/V6)+S(V1)] No previous ECG available for comparison Electronically Signed On 09-21-2023 22:48:40 CDT by Libra Jauregui M.D. [email or web address]
[2023-09-21 09:24] VITALS: BP 171/123; PULSE 72; RESP 16; O2SAT 95
[2023-09-21 09:24] LABS: Alanine Aminotransferase 17 U/L (0-33); Albumin Level 3.8 g/dL (3.5-5.2); Alkaline Phosphatase 100 U/L (35-105); Anion Gap 15.1 (5-19); Aspartate Amino Transferase 17 U/L (0-32); Blood Urea Nitrogen 6 mg/dL (6-20); Carbon Dioxide 24 mmol/L (22-29); Chloride 103 mmol/L (98-107); Creatinine Clr Calc Pharmacy 157.6072; Globulin 3.6 g/dL (1.3-4.6); Glomerular Filtration Rate 90.9 mL/min (90-130); Glucose 116 mg/dL (65-115); Lipase 21 U/L (13-60); Osmolality Calculated 285 mOsm/kg (285-295); Potassium 4.1 mmol/L (3.5-5.1); Sodium 138 mmol/L (136-145); Total Bilirubin 0.5 mg/dL (0.15-1.2); Total Protein 7.4 g/dL (6.6-8.7)
[2023-09-21] MEDS: ondansetron 2 mg/ML SDV 2 mL 4 MG IVP (09:29)
[2023-09-21] MEDS: ketorolac 30 mg/mL INJ IVP (09:32)
[2023-09-21 09:33] LABS: HCG, Serum Qual Negative (Negative)
[2023-09-21] MEDS: sodium chloride 0.9% 1,000 ML 999 ML IV (09:34)
[2023-09-21] MEDS: hyDROXYzine 25 mg Capsule PO (10:01)
[2023-09-21 10:07] LABS: Add Urine Microscopic? YES; Bilirubin Urine Neg (Negative); Blood Urine Neg (Negative); Glucose Urine UA Norm (Normal); Ketones Urine Negative (Negative); Leukocyte Esterase Urine Trace (Negative); Nitrate Urine Negative (Negative); Protein Urine Neg (Negative); Urine Appearance Cloudy (CLEAR); Urine Color Yellow (Yellow); Urobilinogen Urine Norm (Negative); pH Urine 8 (5-7)
[2023-09-21 10:22] LABS: Add Urine Culture? No; WBC Urine 0-4 /hpf (0-5)
[2023-09-21 11:15] VITALS: BP 171/123; PULSE 72; RESP 16; TEMP 37.1; O2SAT 95
== END 2023-09-21 11:16 | disposition home or self-care (01) ==
PROVIDERS: Emergency Provider Family Medicine; PCP Nurse Practitioner
DX: K80.50 Calculus of bile duct without cholangitis or cholecystitis without obstruction (principal); E78.5 Hyperlipidemia, unspecified; I10 Essential (primary) hypertension
CPT/HCPCS: 36415; 80053; 81001; 83690; 84703; 85025; 93005; 96361; 96374; 96375; 99284; J1885; J2405; J7030

== ENCOUNTER → 2024-02-07 09:55 | Outpatient (BNVA) | payer BC, MEDICAID, SELFPAY | PROVIDERS: PCP Nurse Practitioner; Visit Provider Nurse Practitioner | DX: I10 Essential (primary) hypertension (principal); E03.8 Other specified hypothyroidism | CPT/HCPCS: 80053; 80061; 84443 ==

== ENCOUNTER 2024-12-15 07:29 | Outpatient (CLI) | payer OTHER, MEDICAID, SELFPAY ==
[2024-12-15 08:09] LABS: Alanine Aminotransferase 19 U/L (0-33); Albumin Level 3.8 g/dL (3.5-5.2); Alkaline Phosphatase 141 U/L (35-105); Anion Gap 15.4 (5-19); Aspartate Amino Transferase 21 U/L (0-32); Blood Urea Nitrogen 6 mg/dL (6-20); Calcium 9.1 mg/dL (8.5-10.5); Carbon Dioxide 26 mmol/L (22-29); Chloride 101 mmol/L (98-107); Cholesterol 200 mg/dL (0-200); Globulin 3.7 g/dL (1.3-4.6); Glucose 113 mg/dL (65-115); HDL Cholesterol 31 mg/dL (60-100); Osmolality Calculated 284 mOsm/kg (285-295); Potassium 4.4 mmol/L (3.5-5.1); Sodium 138 mmol/L (136-145); Total Protein 7.5 g/dL (6.6-8.7); Triglycerides 143 mg/dL (0-150); VLDL Cholestrol Calculation 29 mg/dL (0-30)
== END 2024-12-15 07:30 | disposition home or self-care (01) ==
PROVIDERS: PCP Nurse Practitioner; Visit Provider Nurse Practitioner
DX: I10 Essential (primary) hypertension (principal); E03.8 Other specified hypothyroidism
CPT/HCPCS: 80053; 80061

== ENCOUNTER 2024-12-21 12:25 | Emergency (ER) | payer MEDICAID, SELFPAY ==
--- OUTSIDE RECORDS SUMMARY | 2024-12-21 12:31 | XMS_ITS | Clinical Summary ---
Author Organization [employer] Address [address] [place]: Epic Prelude ADT NICKO MARTELL [address] Care Team Providers Care Control Panel Operator [facility] Name Role Phone Jack Vila Primary Care Provider [phone] Allergies Active Allergy Reactions Criticality Noted Date Comments Penicillins Shortness of Breath/Wheezing High 01/14/2013 Sulfa (Sulfonamide Antibiotics) Hives High 01/14/2013 Medications naproxen (NAPROSYN) 375 mg tablet Take 1 Tablet (375 mg) by mouth 2 times daily with meals. 14 Tablet None 03/31/2016 Active metoprolol succinate (TOPROL XL) 100 mg Extended Release 24 hour tablet Take 100 mg by mouth daily. 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 SCIENTIST Gender Identity Not on file Sexual Orientation Not on file Last Filed Vital Signs Vital Sign Reading Time Taken Comments Blood Pressure 160/95 04/16/2020 12:02 AM CONTROL SYSTEM COMPUTER SCIENTIST Pulse - - Temperature 36.1 C (97 F) 04/16/2020 12:02 AM CONTROL SYSTEM COMPUTER SCIENTIST Respiratory Rate 16 04/16/2020 12:02 AM CONTROL SYSTEM COMPUTER SCIENTIST Oxygen Saturation - - Inhaled Oxygen Concentration - - Weight 150.1 kg (331 lb) 04/16/2020 12:02 AM CONTROL SYSTEM COMPUTER SCIENTIST Height 180.3 cm (5' 11 ) 04/16/2020 12:02 AM CONTROL SYSTEM COMPUTER SCIENTIST Body Mass Index 46.17 04/16/2020 12:02 AM CONTROL SYSTEM COMPUTER SCIENTIST Plan of Treatment Health Maintenance Due Date Last Done Comments HPV VACCINES (1 - 3-dose series) 1994 DTAP/TDAP/TD VACCINES (1 - Tdap) 1998 HEPATITIS B VACCINES (1 of 3 - 19+ 3-dose series) 05/17 HPV/Cotest (21-29) 2000 CERVICAL CANCER SCREENING 2009 HPV/Cotest (30-65) 2009 PAP SMEAR 2009 BREAST CANCER SCREENING 2019 COLORECTAL SCREENING 2024 Colorectal Cancer Screening 2024 FIT-DNA Q 3 years 2024 FIT/FOBT Q 1 year 2024 Flex Sig/CT Colonography Q 5 years 2024 INFLUENZA VACCINE (#1) 2024 Care Teams Control Panel Operator [facility] Relationship Specialty Start Date End Date Jack Vila DO [address] [place] [address] PCP - General Specialist 03/31/16
[2024-12-21 12:34] VITALS: BP 144/87; PULSE 85; RESP 16; TEMP 36.7; O2SAT 97; BMI 41.5
--- NOTE | 2024-12-21 13:31 | XRR_ITS ---
PROCEDURE INFORMATION: Exam: XR Right Hand Exam date and time: 12/21/2024 1:43 PM Age: 44 years old Clinical indication: Pain; Hand; Right; Additional info: Fall/index finger bruising TECHNIQUE: Imaging protocol: Radiologic exam of the right hand. Views: 3 or more views. COMPARISON: CR XR wrist RT min 3V* [id number] 12/21/2024 1:43 PM FINDINGS: Bones/joints: Normal. Soft tissues: Normal. XR/XR hand RT min 3V* [id number] IMPRESSION: No acute findings.
--- NOTE | 2024-12-21 13:32 | XRR_ITS ---
PROCEDURE INFORMATION: Exam: XR Left Knee Exam date and time: 12/21/2024 1:48 PM Age: 44 years old Clinical indication: Pain; Knee; Left; Additional info: Fall/knee pain TECHNIQUE: Imaging protocol: Radiologic exam of the left knee. Views: 3 views. COMPARISON: No relevant prior studies available. FINDINGS: Bones/joints: No fracture or dislocation. Medial compartment reveals mild marginal osteophytes. The lateral compartment reveals mild joint space loss and moderate marginal osteophytes. Moderate patellar osteophytes are present. Soft tissues: Normal. XR/XR knee LT 3V* [id number] IMPRESSION: Moderate lateral compartment degenerative changes. Mild medial compartment and patellofemoral compartment degenerative changes.
--- NOTE | 2024-12-21 13:32 | XRR_ITS ---
PROCEDURE INFORMATION: Exam: XR Right Ankle Exam date and time: 12/21/2024 1:48 PM Age: 44 years old Clinical indication: Pain; Ankle; Right; Additional info: Fall/swelling lateral TECHNIQUE: Imaging protocol: Radiologic exam of the right ankle. Views: 3 or more views. COMPARISON: CR XR foot RT min 3V* [id number] 05/21/2021 6:30 PM FINDINGS: Bones/joints: 3 mm soft tissue calcification abuts the medial margin of the distal talus on AP and oblique views. The oblique views suggest mild adjacent cortical irregularity of the talus in this location. No other evidence for fracture. No dislocation. A degenerative appearing calcification abuts the posterior margin of the base of the 5th metatarsal. Achilles and plantar calcaneal bone spurs are present. Soft tissues: Moderate soft tissue swelling overlies the lateral malleolus and medial hindfoot. XR/XR ankle RT min 3V* [id number] IMPRESSION: 1. Small soft tissue calcification abutting the medial margin of the distal talus. Although possibly reflecting a degenerative process, small talar avulsion fracture could be present in this location. 2. No other evidence for fracture. 3. Soft tissue swelling.
--- NOTE | 2024-12-21 13:33 | XRR_ITS ---
PROCEDURE INFORMATION: Exam: XR Right Wrist Exam date and time: 12/21/2024 1:43 PM Age: 44 years old Clinical indication: Pain; Wrist; Right; Additional info: Fall TECHNIQUE: Imaging protocol: Radiologic exam of the right wrist. Views: 3 or more views. COMPARISON: CR XR hand RT min 3V* [id number] 12/21/2024 1:43 PM FINDINGS: Bones/joints: Normal. Soft tissues: Normal. XR/XR wrist RT min 3V* [id number] IMPRESSION: No acute findings.
--- NOTE | 2024-12-21 13:52 | W.ED.FALL ---
HPI - Fall General: Chief Complaint: Fall Stated Complaint: fall - ankle and finger pain Time Seen by Provider: 12/21/24 13:24 Source: patient Mode of arrival: ambulatory Limitations: no limitations History of Present Illness: Patient is a 44-year-old female who presents the emergency department after a fall just prior to arrival. She fell in the [facility] parking lot while walking to visit her mother, states she excellently inverted her right ankle, causing her to fall onto her right hand. Reporting pain to her right index finger. She also states she landed on her left knee, and is reporting pain here and states she previously had operation. Pain in her right hand radiating up her right wrist. There is swelling to her right lateral ankle, states she has been ambulatory since but it has steadily worsened and ankle has steadily gotten more swollen. Denies needing pain medications at this time. Did not hit her head or lose consciousness, no other injuries reported. No shortness of breath or chest pain. MD complaint: fall Onset (ago): minute(s) Fall from: standing Place fall occurred: other (Outdoors) Loss of consciousness: None Prolonged down time: no Context: tripped/slipped Location of injury - extremities: Left: knee and Right: forearm, hand and ankle Associated symptoms-after fall: Denies abdominal pain, chest pain, headache(s), lightheadedness or neck pain Related Data Previous Rx's ?Medication ?Instructions ?Recorded alprazolam 1 mg tablet 1 mg PO TID PRN panic 08/23/24 attacks/anxiety #90 tabs escitalopram oxalate 20 mg tablet 20 mg PO QAM #30 tabs 08/23/24 (Lexapro) lisinopril 20 mg tablet 20 mg PO BID #60 tabs 08/28/24 metoprolol succinate 25 mg 25 mg PO .afternoon #30 tabs 08/28/24 tablet,extended release 24 hr naproxen 500 mg tablet 500 mg PO BID PRN pain #30 tabs 09/29/24 lactulose 10 gram/15 mL oral 20 g (30 mL) PO BID PRN 11/25/24 solution constipation #500 mL ursodiol 300 mg capsule 300 mg PO BID #60 caps 12/14/24 Allergies Allergy/AdvReac Type Severity Reaction Status Date / Time sulfur dioxide Allergy Unknown unknown Verified 12/21/24 12:37 egg Allergy ADR-Nausea Verified 12/21/24 12:37 tree nut Allergy ALGY-Anaphy Verified 12/21/24 12:37 laxis Review of Systems General: Reports: 10 or more systems reviewed and unremarkable except in HPI and below Const: Reports: other (Report fall); Denies: fever(s), chills or fatigue Eyes: Denies: change in vision ENMT: Denies: throat pain, ear or mastoid pain or nasal discharge Card: Denies: chest pain, palpitations, swelling of feet/ankles or lightheadedness Resp: Denies: dyspnea, productive cough or wheezing GI: Denies: abdominal pain, nausea, vomiting, diarrhea or constipation : Denies: flank pain, difficulty voiding, dysuria or urinary frequency Musc: Reports: extremity pain (Right hand), joint pain (Right ankle/right wrist/left knee) and joint swelling (Right ankle); Denies: neck pain or back pain Skin/Breast: Denies: rash Neuro: Denies: headache(s), numbness in extremities or weakness in extremities PFSH ED PFSH: Medical History Psychiatric care Knee pain, bilateral Primary osteoarthritis of right knee Bereavement Loss of on 09/11/22 Major depressive disorder, recurrent episode, moderate with anxious distress External hemorrhoid Irritable bowel syndrome with constipation Hyperlipidemia Hypertension Panic disorder without agoraphobia Surgical History History of delivery Family History Mother Diabetes Father CAD (coronary artery disease) Social History Smoking and tobacco/nicotine status: former use of tobacco/nicotine Second hand smoke exposure: No Alcohol intake: unknown Substance/Drug Use: unknown Adopted: No Caregiver/support person: No Lives independently: Yes Household members: children Housing: House Marital status: Single Number of children: 3 service: No Current occupational status: employed Do you think of yourself as: Straight/Heterosexual Current gender identity: Female Female Reproductive History: Date of last menstrual period: 11/25/24 Physical Exam Const: COMMON NORMALS: no acute distress, patient oriented x3, no limitations, healthy appearing, alert and well nourished HENMT: COMMON NORMALS: normocephalic and atraumatic HEAD & SCALP: normocephalic and atraumatic Eye: COMMON NORMALS: Equal, round and reactive pupils present and EOMs intact bilaterally PUPIL: Yes Equal, round and reactive pupils present Neck/C-Spine: COMMON NORMALS: full ROM, supple and no meningeal signs Resp: COMMON NORMALS: normal respiratory effort, No use of accessory muscles and clear to auscultation bilaterally AUSCULTATION: clear to auscultation bilaterally Cardio: COMMON NORMALS: regular rate and regular rhythm RATE: regular rate RHYTHM: regular rhythm Extremity: COMMON NORMALS: full ROM and capillary refill normal NARRATIVE EXTREMITY EXAM: There is swelling to the right lateral malleolus, tender to palpation. No tenderness in the foot. Able to move at the ankle, with mild pain reported. Positive inversion ankle testing. No tenderness to palpation of the proximal right fibula. No bruising. Tenderness to palpation to patient's right distal phalanx of the pointer finger. Normal neurovascular exam. Patient's left knee with scattered abrasions, diffusely tender to palpation. All other joints and extremities palpated and nontender. Neuro: COMMON NORMALS: patient oriented x3, moves all extremities, no focal motor deficits and no sensory deficits noted SENSORIUM/ORIENTATION: Yes alert MENINGEAL SIGNS: Yes no meningeal signs Skin: COMMON NORMALS: no rashes or lesions noted GENERAL SKIN EXAM: no rashes or lesions noted Course Vital Signs: Vital signs: Vital Signs Temperature 98.0 F 12/21/24 12:34 Pulse Rate 85 12/21/24 12:34 Respiratory Rate 16 12/21/24 12:34 Blood Pressure 144/87 12/21/24 12:34 Pulse Oximetry 97 12/21/24 12:34 Oxygen Delivery Me thod Room Air 12/21/24 12:34 MDM - Fall Medical Decision Making Patient presented after a fall, this was accidental removal after inverting right ankle. Lateral malleoli are swelling on exam, also had abrasions and tenderness to left knee and pain to right index finger and wrist. These areas were x-rayed, appreciating questionable fracture to distal right fibula we will splint for precautionary purposes awaiting official radiology read, as patient is requesting to leave to go see her mom who is on hospice. Crutches for nonweightbearing, she will be called with official results and we discussed treatment for both fracture and/or sprain. All of the questions and concerns addressed, work note provided, and patient agrees with this plan. XR interpretation done by ED provider, pending radiology final review ED provider radiology interpretation(s): Questionable fracture to distal right fibula. X-ray of right hand and wrist unremarkable. X-ray left knee unremarkable. Discharge Plan Discharge Patient Disposition: Home Clinical Impression: Fall Qualifiers: Encounter type: initial encounter Qualified Code(s): W19.XXXA - Unspecified fall, initial encounter High ankle sprain of right lower extremity Qualifiers: Encounter type: initial encounter Qualified Code(s): S93.491A - Sprain of other ligament of right ankle, initial encounter Contusion of arm, right Qualifiers: Encounter type: initial encounter Qualified Code(s): S40.021A - Contusion of right upper arm, initial encounter Abrasion of knee, left Qualifiers: Encounter type: initial encounter Qualified Code(s): S80.212A - Abrasion, left knee, initial encounter Condition: Stable Prescriptions: No Action alprazolam 1 mg tablet 1 mg PO TID PRN (Reason: panic attacks/anxiety) Qty: 90 3RF Rx Instructions: May take one tablet three times per day as needed for anxiety Lexapro 20 mg tablet 20 mg PO QAM Qty: 30 6RF Rx Instructions: Take one tablet every morning lisinopril 20 mg tablet 20 mg PO BID Qty: 60 5RF metoprolol succinate 25 mg tablet extended release 24 hr 25 mg PO .afternoon Qty: 30 5RF ursodiol 300 mg capsule 300 mg PO BID Qty: 60 0RF naproxen 500 mg tablet 500 mg PO BID PRN (Reason: pain) Qty: 30 0RF lactulose 10 gram/15 mL solution 20 g PO BID PRN (Reason: constipation) Qty: 500 0RF Discharge Orders: Discharge ED (Routine); Ordered 12/21/24 Ordered By: Chas Dotson Referrals: Krys Jaimes, [facility] [Primary Care Provider, Family Practice] Patient Instructions: Patient Portal & Rusty Instructions Activity Restrictions/Additional Instructions: Discharge Instructions: Ankle Injury Discharge Instructions for Right Ankle Injury (Distal Fibula Pathology/High Ankle Sprain) Diagnosis and Initial Management - You have sustained an injury to your right ankle, with concern for a distal fibula injury or a high (syndesmotic) ankle sprain. - Your ankle has been immobilized in a splint to protect the area and promote healing. You are to remain non-weightbearing on the affected leg and use crutches as instructed. Activity and Protection - Do not put any weight on your right leg until cleared by your healthcare provider. Use crutches at all times when moving. - Keep the splint clean and dry. Do not remove or adjust the splint unless instructed. - Elevate your leg above the level of your heart as much as possible to reduce swelling. - Apply ice packs to the injured area for 15?20 minutes every 2?3 hours while awake for the first 48?72 hours to help with pain and swelling. Always place a barrier (such as a towel) between the ice and your skin. Pain Management - You may use acetaminophen or a short course of nonsteroidal anti-inflammatory drugs (NSAIDs) for pain control, unless otherwise instructed. These medications are safe for short-term use and do not impair healing. - Opioid medications are rarely necessary and should be avoided unless specifically prescribed. Monitoring and When to Seek Care - Watch for signs of increased pain, numbness, tingling, coldness, or color changes in your toes. If any of these occur, or if you develop fever, severe swelling, or drainage from the splint, seek medical attention promptly. - If the splint becomes loose, damaged, or wet, contact your provider for further instructions. Follow-Up - It is essential to follow up as scheduled for reevaluation. This may include repeat examination and imaging to assess healing and determine the next steps in your care. - Your provider will advise when it is safe to begin weightbearing and start a rehabilitation program, which is critical for restoring strength, flexibility, and balance, and for reducing the risk of future ankle problems. Work and Activity Restrictions - A work note has been provided. Please adhere to the activity restrictions outlined and do not return to work or sports until cleared by your provider. Prevention and Recovery - Once cleared, a structured rehabilitation program including range of motion, strengthening, and balance exercises will be recommended to optimize recovery and prevent recurrent injury. - Use of an ankle brace or support may be advised during the return to activity phase, especially if participating in sports or high-risk activities. Contact Information - For questions or concerns, or if you experience any of the warning signs above, contact your healthcare provider or seek emergency care as appropriate. Summary - Remain non-weightbearing with crutches. - Keep the splint clean, dry, and intact. - Elevate and ice the ankle as instructed. - Take pain medications as directed. - Attend all follow-up appointments for reassessment and further management. These instructions are based on current best practices and clinical guidelines from the [employer] [employer], [place] [employer], [place] [employer], and the [employer]. Stand Alone Forms: Work/School Release Print Language: Nepali Coding Level of Care Code ED Chain Machine Operator for Sarai Sage
== END 2024-12-21 16:03 | disposition home or self-care (01) ==
PROVIDERS: Emergency Provider Physician Assistant; PCP Nurse Practitioner
DX: S93.491A Sprain of other ligament of right ankle, initial encounter (principal); S40.021A Contusion of right upper arm, initial encounter; S80.212A Abrasion, left knee, initial encounter; W19.XXXA Unspecified fall, initial encounter; Z87.891 Personal history of nicotine dependence; E78.5 Hyperlipidemia, unspecified; I10 Essential (primary) hypertension
CPT/HCPCS: 29515; 73110; 73130; 73562; 73610; 99284; E0114

== ENCOUNTER 2025-01-23 13:34 | Emergency (ER) | payer MEDICAID, SELFPAY ==
[2025-01-23 13:43] VITALS: BP 177/132; PULSE 75; RESP 18; TEMP 36.7; O2SAT 100; BMI 43.0
--- OUTSIDE RECORDS SUMMARY | 2025-01-23 13:43 | XMS_ITS | Clinical Summary ---
Author Organization [facility] Address [address] [place]: Epic Prelude ADT [place]TELL [id number] Care Team Providers Care Monorail Helper Name Role Phone Jack Vila Primary Care Provider Allergies Active Allergy Reactions Criticality Noted Date [...] on file Legal Sex Female 8:53 AM [facility] Gender Identity Not on file Sexual Orientation Not on file Last Filed Vital Signs Vital Sign Reading Time Taken Comments Blood Pressure 160/95 04/16/2020 12:02 AM [facility] [employer] [facility] Pulse - - Temperature 36.1 C (97 F) 04/16/2020 12:02 AM [facility] [facility] Respiratory Rate 16 04/16/2020 12:02 AM [facility] Oxygen Saturation - - Inhaled Oxygen Concentration - - Weight 150.1 kg (331 lb) 04/16/2020 12:02 AM [facility] [facility] Height 180.3 cm (5' 11 ) 04/16/2020 12:02 AM [facility] Body Mass Index 46.17 04/16/2020 12:02 AM [facility] [facility] Plan of Treatment Health Maintenance Due Date Last Done Comments DTAP/TDAP/TD VACCINES (1 - Tdap) 1998 HEPATITIS B VACCINES (1 of 3 - 19+ 3-dose series) 05/17 HPV/Cotest (21-29) 2000 HPV VACCINES (1 - 3-dose SCDM series) 2006 CERVICAL CANCER SCREENING 2009 HPV/Cotest (30-65) 2009 PAP SMEAR 2009 BREAST CANCER SCREENING 2019 COLORECTAL SCREENING 2024 Colorectal Cancer Screening 2024 FIT-DNA Q 3 years 2024 FIT/FOBT Q 1 year 2024 Flex Sig/CT Colonography Q 5 years 2024 INFLUENZA VACCINE (#1) 2024 Care Teams Monorail Helper Relationship Specialty Start Date End Date Jack Vila DO [address] [place] [address] PCP - General Specialist 03/31/16
--- NOTE | 2025-01-23 14:08 | XR_ITS ---
WS: [id number] Portable AP upright chest, 01/23/2025 Clinical Data: chest pain Comparison: Two-view chest, 04/17/2020 Findings: No nodules, masses or effusions are seen. The heart is normal. The pulmonary vascularity is not increased. No pneumonia or pneumothorax is seen. Monitor leads are on the chest wall. XR/XR chest 1V portable [id number] Impression: Negative chest.
--- NOTE | 2025-01-23 14:08 | ED_ITS ---
HPI - Extremity Problem 2 General: Chief complaint: Extremity Problem,Nontraumatic Stated complaint: L side breast pain History of Present Illness: Patient is 44-year-old female with recent history of hypertension, ongoing anxiety, presents to the emergency room with left-sided breast/chest discomfort. She states that she does not have any association of shortness of breath, diaphoresis, no recent cold, fever. Blood pressure is quite elevated in triage 177/132. Patient stated she just had the of her mother today. She feels like burping might make it better, however is unsure. She does not have cardiac history. LMP finished yesterday. Father of heart disease/heart attack early . Mom recently had a brain aneurysm. She is not have any radiation of her left sided breast/chest wall discomfort. It feels like a fullness in her left breast. Initial EKG findings show normal sinus rhythm with PAC. Associated symptoms: Reports chest pain; Deny fever(s) or rash Related Data Previous Rx's ?Medication ?Instructions ?Recorded lisinopril 20 mg tablet 20 mg PO BID #60 tabs metoprolol succinate 25 mg 25 mg PO .afternoon #30 tab s 08/28/24 tablet,extended release 24 hr lactulose 10 gram/15 mL oral 20 g (30 mL) PO BID PRN 0 11/25/24 solution constipation #500 mL ursodiol 300 mg capsule 300 mg PO BID #60 caps 12/14 alprazolam 1 mg tablet 1 mg PO TID PRN panic attacks/anxiety #90 tabs escitalopram oxalate 20 mg tablet 20 mg PO QAM #30 tab s 12/27/24 (Lexapro) propranolol 120 mg capsule,24 120 mg PO DAILY #30 caps 01/23/25 hr,extended release (Inderal LA) Allergies Allergy/AdvReac Type Severity Reaction Status Date / Time sulfur dioxide Allergy Unknown unknown Verified 12/21/24 12:37 egg Allergy ADR-Nausea Verified 12/21/24 12:37 tree nut Allergy ALGY-Anaphy Verified 12/21/24 12:37 laxis Review of Systems 2 General: Reports: 10 or more systems reviewed and unremarkable except in HPI and below Const: Denies: fever(s), chills or fatigue Eyes: Denies: change in vision ENMT: Denies: throat pain, ear or mastoid pain or nasal discharge Card: Reports: chest pain; Denies: palpitations, swelling of feet/ankles or lightheadedness Resp: Denies: dyspnea, productive cough or wheezing GI: Denies: abdominal pain, nausea, vomiting, diarrhea or constipation : Denies: flank pain, difficulty voiding, dysuria or urinary frequency Musc: Denies: neck pain or back pain Skin/Breast: Denies: rash Neuro: Denies: headache(s), numbness in extremities or weakness in extremities PFSH ED 2 PFSH: Medical History (Updated 01/23/25 @ 15:26 by BOSTON Sauceda) Psychiatric care Knee pain, bilateral Primary osteoarthritis of right knee Bereavement Loss of on 09/11/22 Major depressive disorder, recurrent episode, moderate with anxious distress External hemorrhoid Irritable bowel syndrome with constipation Hyperlipidemia Hypertension Panic disorder without agoraphobia Surgical History History of delivery Family History Mother Diabetes Father CAD (coronary artery disease) Social History Smoking and tobacco/nicotine status: former use of tobacco/nicotine Second hand smoke exposure: No Alcohol intake: unknown Substance/Drug Use: unknown Adopted: No Caregiver/support person: No Lives independently: Yes Household members: children Housing: House Marital status: Single Number of children: 3 service: No Current occupational status: employed Do you think of yourself as: Straight/Heterosexual Current gender identity: Female Physical Exam 2 Const: COMMON NORMALS: no acute distress, average body habitus and patient oriented x3 HENMT: COMMON NORMALS: normocephalic and atraumatic HEAD & SCALP: n ormocephalic and atraumatic Eye: COMMON NORMALS: Equal, round and reactive pupils present and EOMs intact bilaterally PUPIL: Yes Equal, round and reactive pupils present Neck/C-Spine: COMMON NORMALS: full ROM and no lymphadenopathy Lymph: LYMPHATIC: no lymphadenopathy noted Chest: COMMONS NORMALS: normal inspection of the chest and normal palpation of the breasts BREAST/AXILLA PALPATION: Yes normal palpation of the breasts Resp: COMMON NORMALS: normal respiratory effort and clear to auscultation bilaterally AUSCULTATION: clear to auscultation bilaterally Cardio: COMMON NORMALS: regular rate, regular rhythm and Peripheral pulses 2+ throughout PALPATION: abnormal PMI displaced PMI (laterally) RATE: regular rate RHYTHM: regular rhythm PERIPHERAL PULSES: Peripheral pulses 2+ throughout GI: COMMON NORMALS: Normal to inspection, nondistended, normoactive bowel sounds present, Soft to palpation and non-tender PALPATION: Yes Soft to palpation : COMMON NORMALS: Yes no CVA tenderness BLADDER/KIDNEY EXAM: Yes no CVA tenderness Back/Pelvis: COMMON NORMALS: no CVA tenderness Extremity: COMMON NORMALS: normal to inspection, full ROM and capillary refill normal Neuro: COMMON NORMALS: patient oriented x3 Psych: COMMON NORMALS: mental status grossly normal, Normal thought process present, cooperative and normal affect THOUGHT PROCESS: Normal thought process present Skin: COMMON NORMALS: no rashes or lesions noted, no wounds and turgor normal GENERAL SKIN EXAM: no rashes or lesions noted and turgor normal Course 2 Vital Signs: Vital signs: Vital Signs Temperature 98.1 F 01/23/25 13:43 Pulse Rate 82 01/23/25 15:51 Respiratory Rate 18 01/23/25 14:39 Blood Pressure 137/94 01/23/25 15:51 Pulse Oximetry 100 01/23/25 15:51 Oxygen Delivery Me thod Room Air 01/23/25 15:00 MDM - Extremity (Nontraumatic) Medical Decision Making Patient is 44-year-old female presents to ED with left-sided breast/chest pain. She did not want the GI cocktail because the last time she had it she had ongoing nausea and vomiting. This is totally understandable. I did give her aspirin while waiting for the results. Her chest pain had occurred for longer than 2 hours, and therefore she does not need to wait for second troponin or EKG to be discharged home at this time. She does not have acute coronary syndrome. Discussed with patient I strongly suspect association of her blood pressure which I am not sure how much is related to anxiety/grief reaction versus underlying blood pressure. It sounds like she does have some uncontrolled blood pressure. She is compliant to her metoprolol, however waxes and wanes on lisinopril. I will change her to propranolol to help with her anxiety, once daily as a long-acting for compliance, and parameters with her lisinopril. I have asked her to follow-up with her primary care physician for further evaluation and blood pressure control. I did consider carvedilol CR because of alpha adrenergic receptors that are affected as well as beta-blockade. Given her age, PACs, and question of esophageal spasms, I also considered Cardizem CD for control of symptoms, and blood pressure. I will defer this to primary care/cardiology for further adjustments. All of her questions answered to her satisfaction. Lab Data 01/23/25 14:22 01/23/25 14:22 Radiology Impressions Chest X-Ray 01/23/25 14:08 Impression: Negative chest. Laboratory Results WBC 7.00 10^3/uL (3.29-11.43) 01/23/25 14:22 RBC 5.04 10^6/uL (3.85-5.65) 01/23/25 14:22 Hgb 13.00 g/dL (11.27-16.99) 01/23/25 14:22 Hct 42.2 % (36-47) 01/23/25 14:22 MCV 83.7 fl (85-98) L 01/23/25 14:22 MCH 25.8 pg (27-33) L 01/23/25 14:22 MCHC 30.8 g/dL (30-55) 01/23/25 14:22 RDW 14.4 % (12.1-15.1) 01/23/25 14:22 Plt Count 296 10^3/cmm (157-399) 01/23/25 14:22 MPV 10.3 fL (7.4-10.4) 01/23/25 14:22 Neut % (Auto) 49.7 % 01/23/25 14:22 Lymph % (Auto) 42.1 % 01/23/25 14:22 [place] % (Auto) 6.6 % 01/23/25 14:22 Eos % (Auto) 0.6 % 01/23/25 14:22 Baso % (Auto) 0.7 % 01/23/25 14:22 Neut # (Auto) 3.48 10^3/uL (1.8-7.7) 01/23/25 14:22 Lymph # (Auto) 3.0 10^3/uL (0.8-4.8) 01/23/25 14:22 [place] # (Auto) 0.5 10^3/uL (0.2-0.9) 01/23/25 14:22 Eos # (Auto) 0.0 10^3/uL (0.0-0.8) 01/23/25 14:22 Baso # (Auto) 0.1 10^3/uL (0.0-0.1) 01/23/25 14:22 Nucleated RBC % (auto) 0 % 01/23/25 14:22 Nucleated RBCs # 0.0 /100WBC 01/23/25 14:22 Sodium 137 mmol/L (136-145) 01/23/25 14:22 Potassium 4.0 mmol/L (3.5-5.1) 01/23/25 14:22 Chloride 104 mmol/L (98-107) 01/23/25 14:22 Carbon Dioxide 24 mmol/L (22-29) 01/23/25 14:22 Anion Gap 13.0 (5-19) 01/23/25 14:22 BUN 7 mg/dL (6-20) 01/23/25 14:22 Creatinine 0.8 mg/dL (0.5-0.9) 01/23/25 14:22 GFR Calculation 77.6 mL/min (90-130) L 01/23/25 14:22 Glucose 101 mg/dL (65-115) 01/23/25 14:22 Calculated Osmolality 282 mOsm/kg (285-295) L 01/23/25 14:22 Calcium 10.1 mg/dL (8.5-10.5) 01/23/25 14:22 Total Bilirubin 0.5 mg/dL (0.15-1.2) 01/23/25 14:22 AST 23 U/L (0-32) 01/23/25 14:22 ALT 19 U/L (0-33) 01/23/25 14:22 Alkaline Phosphatase 122 U/L (35-105) H 01/23/25 14:22 Troponin T Baseline < 6 ng/L (0-10) 01/23/25 14:22 NT-Pro-B Natriuret Pep 143 pg/mL (0-125) H 01/23/25 14:22 Total Protein 7.7 g/dL (6.6-8.7) 01/23/25 14:22 Albumin 4.1 g/dL (3.5-5.2) 01/23/25 14:22 Globulin 3.6 g/dL (1.3-4.6) 01/23/25 14:22 All radiology interpretation(s) finalized by discharge EKG Data EKG 1: Interpretation: Normal sinus rhythm, normal axis, no ST segment elevation Discharge Plan Discharge Patient Disposition: Home Clinical Impression: Chest pain, non-cardiac, Hypertension, uncontrolled Condition: Stable Prescriptions: New propranolol [Inderal LA] 120 mg capsule,extended release 24 hr 120 mg PO DAILY Qty: 30 0RF No Action lisinopril 20 mg tablet 20 mg PO BID Qty: 60 5RF metoprolol succinate 25 mg tablet extended release 24 hr 25 mg PO .afternoon Qty: 30 5RF ursodiol 300 mg capsule 300 mg PO BID Qty: 60 0RF lactulose 10 gram/15 mL solution 20 g PO BID PRN (Reason: constipation) Qty: 500 0RF alprazolam 1 mg tablet 1 mg PO TID PRN (Reason: panic attacks/anxiety) Qty: 90 3RF Rx Instructions: May take one tablet three times per day as needed for anxiety Lexapro 20 mg tablet 20 mg PO QAM Qty: 30 6RF Rx Instructions: Take one tablet every morning Discharge Orders: Discharge ED (Routine); Ordered 01/23/25 Ordered By: Yue Brizuela Referrals: Libra Jauregui MD [Physician, Cardiology] - 4-7 days Krys Jaimes, [employer] [Primary Care Provider, Family Practice] Discharge Diet: Low Salt Discharge Activity: Resume usual activity Patient Instructions: DASH Eating Plan (ED), Noncardiac Chest Pain (ED), Patient Portal & Rusty Instructions Activity Restrictions/Additional Instructions: - Stop metoprolol - Propranolol has been sent to the pharmacy. This is to be taken once a day. This is in place of the metoprolol. I would take this at night, every night. - You may take your lisinopril in the morning if needed for blood pressure greater than 140/80 - Obtain your blood pressure once daily and log to Dr. Jauregui - Follow a low-salt diet, also called the DASH diet. Information has been given to you. - This rules out acute coronary syndrome or acute heart attack, however does not rule out deposition of plaques in your artery. You do not have anything acute going on right now. You can follow-up with your primary care physician regarding your blood pressure, as well as your chest pain visit, and discuss if you need to be referred to cardiology for possible stress test. - Return to ED for other issues with chest pain, associated with shortness of breath or not. Print Language: Swedish Coding Level of Care Code ED Php Web Developer for Sarai Sage
--- NOTE | 2025-01-23 14:19 | ECG_ITS ---
[facility] Emergent Views Test Date: 2025-01-23 Pat Name: Francesca Kirk Department: Room: Gender: Female [employer] Fire[employer]: : 1980 Requested By: Yue Brizuela Order Number: [id number] Acosta MD: Onesimo Deleon M.D. Measurements Intervals Apollo Rate: 75 P: 47 MN: 196 QRS: 31 QRSD: 98 T: 12 QT: 362 QTc: 405 Interpretive Statements SINUS RHYTHM LOW QRS VOLTAGE IN PRECORDIAL LEADS [QRS DEFLECTION < 1.0 mV IN CHEST LEADS] PROBABLE INFERIOR MYOCARDIAL INFARCTION , PROBABLY OLD [35 ms Q WAVE IN II/aVF] Compared to ECG 09/21/2023 09:13:14 Low QRS voltage now present Electronically Signed On 01-24-2025 21:04:45 CDT by Onesimo Deleon M.D. [email or web address]
[2025-01-23 14:37] LABS: Hematocrit 42.2 % (36-47); Hemoglobin 13.00 g/dL (11.27-16.99); Mean Corpuscular HGB Conc 30.8 g/dL (30-55); Mean Corpuscular Hemoglobin 25.8 pg (27-33); Mean Corpuscular Volume 83.7 fl (85-98); Nucleated Red Blood Cells % 0 %; Platelet Count 296 10^3/cmm (157-399); Red Blood Count 5.04 10^6/uL (3.85-5.65); White Blood Count 7.00 10^3/uL (3.29-11.43)
[2025-01-23 14:39] VITALS: BP 181/114; PULSE 77; RESP 18; O2SAT 100
[2025-01-23 14:53] LABS: Troponin(5th) Baseline < 6 ng/L (0-10)
[2025-01-23 15:00] VITALS: BP 152/90; PULSE 88; O2SAT 100
[2025-01-23 15:15] LABS: Alanine Aminotransferase 19 U/L (0-33); Albumin Level 4.1 g/dL (3.5-5.2); Alkaline Phosphatase 122 U/L (35-105); Anion Gap 13.0 (5-19); Aspartate Amino Transferase 23 U/L (0-32); Blood Urea Nitrogen 7 mg/dL (6-20); Calcium 10.1 mg/dL (8.5-10.5); Carbon Dioxide 24 mmol/L (22-29); Chloride 104 mmol/L (98-107); Creatinine Clr Calc Pharmacy 133.9261; Globulin 3.6 g/dL (1.3-4.6); Glucose 101 mg/dL (65-115); NT Pro B Type Natriuretic Pept 143 pg/mL (0-125); Osmolality Calculated 282 mOsm/kg (285-295); Potassium 4.0 mmol/L (3.5-5.1); Sodium 137 mmol/L (136-145); Total Protein 7.7 g/dL (6.6-8.7)
[2025-01-23 15:30] VITALS: BP 163/112; PULSE 82; O2SAT 99
[2025-01-23 15:51] VITALS: BP 137/94; PULSE 82; O2SAT 100
== END 2025-01-23 15:53 | disposition home or self-care (01) ==
PROVIDERS: Emergency Provider Physician Assistant; PCP Nurse Practitioner
DX: R07.89 Other chest pain (principal); I10 Essential (primary) hypertension; Z87.891 Personal history of nicotine dependence; E78.5 Hyperlipidemia, unspecified
CPT/HCPCS: 71045; 80053; 83880; 84484; 85025; 93005; 99285; J9999